=== PATIENT | male | born 1995 | race Caucasian/White ===

== ENCOUNTER 2017-09-01 13:46 | Emergency (ER) | payer OTHER ==
[2017-09-01 13:48] VITALS: BMI 20.1
[2017-09-01] MEDS ORDERED: Lidocaine 1% (10 ml) Inj INFIL STA (14:01)
[2017-09-01] MEDS ORDERED: Lidocaine 1% Inj (20ml) ONE (14:02)
[2017-09-01] MEDS ORDERED: Tdap Vaccine 0.5 ml Vial (10-64 yrs) IM ONE (14:02)
[2017-09-01] MEDS ORDERED: Lidocaine 1% Inj (20ml) INFIL STA (14:12)
--- NOTE | 2017-09-01 14:33 | ED PDOC ---
HPI: Psych/Substance Abuse Time Seen by Provider: 09/01/17 13:56 Chief Complaint (Nursing): Psychiatric Evaluation Chief Complaint (Provider): Suicidal ideation History Per: Patient History/Exam Limitations: no limitations Onset/Duration Of Symptoms: Hrs (today) Current Symptoms Are (Timing): Still Present Suicide/Self Injury Attempted (Context): Other (cuts to left forearm) Associated Symptoms: Suicidal Thoughts Involuntary Hold By: None Additional Complaint(s): Ayesha Jauregui is a 22 year old male, with a past history of psychiatric problems, who was brought to the emergency department via EMS after patient cut his left arm today. Patient states his [place] and didn't want to talk to him, so he cut himself to prove a point. Patient has a history of cutting linear scars on whole left arm, and states he never needed stitches for lacerations in the past. Patient has been cutting himself since 13 y/o and used to go to counseling. He further states he had anger management problems. Tetanus not up to date. No further medical complaints. PMD: None provided. Past Medical History Reviewed: Historical Data, Nursing Documentation, Vital Signs Vital Signs: Last Vital Signs Temp 98.3 F 09/01/17 13:48 Pulse 81 09/01/17 13:48 Resp 17 09/01/17 13:48 BP 129/81 09/01/17 13:48 Pulse Ox 98 09/01/17 13:48 - Medical History PMH: No Chronic Diseases - Surgical History Surgical History: No Surg Hx - Family History Family History: States: Unknown Family Hx - Social History Current smoker - smoking cessation education provided: No Alcohol: None Drugs: Denies - Home Medications Home Medications: Ambulatory Orders Medication Instructions Recorded Cephalexin [Keflex] 500 mg PO BID #14 capsule 09/01/17 - Allergies Allergies/Adverse Reactions: Allergies Allergy/AdvReac Type Severity Reaction Status Date / Time No Known Allergies Allergy Verified 09/01/17 13:50 Review of Systems ROS Statement: Except As Marked, All Systems Reviewed And Found Negative Skin: Positive for: Other (lacerations to forearm) Psych: Positive for: Suicidal ideation Physical Exam - Reviewed Nursing Documentation Reviewed: Yes Vital Signs Reviewed: Yes - Physical Exam Appears: Positive for: Non-toxic, No Acute Distress Head Exam: Positive for: ATRAUMATIC, NORMOCEPHALIC Skin: Positive for: Normal Color, Warm, Dry Eye Exam: Positive for: Normal appearance, EOMI, PERRL Neck: Positive for: Painless ROM, Supple Cardiovascular/Chest: Positive for: Regular Rate, Rhythm. Negative for: Murmur Respiratory: Positive for: Normal Breath Sounds. Negative for: Respiratory Distress Extremity: Positive for: Normal ROM (upper and lower extremities), Other (6cm laceration to left forearm). Negative for: Deformity, Swelling Neurologic/Psych: Positive for: Alert, Oriented. Negative for: Motor/Sensory Deficits - ECG O2 Sat by Pulse Oximetry: 98 (RA) Medical Decision Making Medical Decision Making: Time: 13:56 Initial Impression: Suicidal ideation, laceration to left forearm Initial Plan: --Crisis evaluation as ordered --Lidocaine 1% 5 ml IJ --Adacel 0.5 ml IM --1:1 Observation Crisis evaluation completed. Adjustment. Dr. Flowers. Scribe Attestation: Documented by Yvan Nova, acting as a scribe for Bri Kulkarni PA-C Provider Scribe Attestation: All medical record entries made by the Scribe were at my direction and personally dictated by me. I have reviewed the chart and agree that the record accurately reflects my personal performance of the history, physical exam, medical decision making, and the department course for this patient. I have also personally directed, reviewed, and agree with the discharge instructions and disposition. Procedures - Laceration/Wound Repair Left Arm Wound Length (cm): 6 Wound's Depth, Shape: superficial, linear Wound Explored: clean Anesthesia: 1% Lidocaine (w/o epi) Volume Anesthetic (ccs): 4 Wound Repaired With: Sutures Suture Size/Type: 4:0, proline Number of Sutures: 5 (interrrupted) Wound Complexity: Simple Disposition - Clinical Impression Clinical Impression: Forearm laceration, Tetanus toxoid vaccination administered at current visit - Patient ED Disposition Is Patient to be Admitted: No - Disposition Disposition: Routine/Home Disposition Time: 17:23 Condition: STABLE Additional Instructions: Do not get wet for 24-48 hours. Keep clean and dry with antibiotic ointment twice a day. Suture removal in 10 days. Return sooner for signs of infection. Prescriptions: Cephalexin [Keflex] 500 mg PO BID #14 capsule Instructions: Stitches, Laceration Repair Forms: [facility] ([place])
[2017-09-01 17:44] VITALS: BP 133/72; PULSE 79; RESP 16; TEMP 98.2; O2SAT 100
== END 2017-09-01 17:40 | disposition home or self-care (01) ==
LOC: H.ER 13:46
DX: S51.812A Laceration without foreign body of left forearm, initial encounter (principal); X78.9XXA Intentional self-harm by unspecified sharp object, initial encounter; Y92.89 Other specified places as the place of occurrence of the external cause